=== PATIENT | female | born 2000 | race Caucasian/White ===

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

== ENCOUNTER 2022-01-29 18:46 | Emergency (ER) | payer BC ==
[~2022-01-29] VITALS: Ht 162.5 cm; Wt 49.8 kg
--- NOTE | 2022-01-29 19:14 | ED Abdominal Pain ---
General Chief Complaint: Abdominal/GI Problems Stated Complaint: LOWER RIGHT SIDE PAIN Source of Information: Patient Exam Limitations: No Limitations History of Present Illness Date Seen by Provider: Jan 29, 2022 Time Seen by Provider: 18:40 Initial Comments Patient ER by private conveyance with her mother with chief complaint that about 15 hours prior to arrival at 3 in the morning she was awoken with pain going across to her lower abdomen mostly to her right side. She has some pain in her back. She is not having vomiting fever chills malaise or body aches but she does have some nausea. No history of abdominal surgeries or trauma. No dysuria discharge. She is not on any medications routinely except for multivitamins. She has not taken anything for the pain today. She is about 18 days out from her last menstrual period. She says that her cycles are regular. Had a normal bowel movement earlier this morning. Rates it as 7 out of 10 while she is up moving around but only a 2 or 3 out of 10 while she is resting comfortably. Allergies and Home Medications Allergies Coded Allergies: amoxicillin (Verified Allergy, Unknown, hives, 01/29/22) clavulanic acid (Verified Allergy, Unknown, hives, 01/29/22) Patient Home Medication List Home Medication List Reviewed: Yes Review of Systems Review of Systems Constitutional: No chills, No diaphoresis EENTM: No Blurred Vision, No Double Vision Respiratory: Denies Cough, Denies Shortness of Air Cardiovascular: Denies Chest Pain, Denies Lightheadedness Gastrointestinal: Denies Constipated, Denies Diarrhea Genitourinary: Denies Burning, Denies Discharge Musculoskeletal: No back pain, No joint pain All Other Systems Reviewed Negative Unless Noted: Yes Past Knaaope-Rvrrsr-Mudlps Hx Patient Social History Tobacco Use?: No Use of E-Cig and/or Vaping dev: No Substance use?: No Alcohol Use?: No Pt feels they are or have been: No Immunizations Up To Date Influenza Vaccine Up-to-Date: No; Not Current First/Initial COVID19 Vaccinat: DENIES Past Medical History Surgeries: Yes (wisdom) Respiratory: No Cardiac: No Neurological: No Genitourinary: No Gastrointestinal: No Musculoskeletal: No Endocrine: No HEENT: No Cancer: No Psychosocial: No Integumentary: No Blood Disorders: No Physical Exam Vital Signs Vital Signs - First Documented 01/29/22 18:55 Temp 36.4 Pulse 100 Resp 16 B/P (MAP) 127/79 (95) Pulse Ox 99 O2 Delivery Room Air Capillary Refill : Height/Weight/BMI Height: '" Weight: lbs. oz. kg; BMI Method: General Appearance: WD/WN, mild distress HEENT: PERRL/EOMI, normal ENT inspection, TMs normal, pharynx normal Neck: full range of motion, supple, normal inspection Respiratory: lungs clear, normal breath sounds, no respiratory distress, no accessory muscle use Cardiovascular: normal peripheral pulses, regular rate, rhythm Gastrointestinal: normal bowel sounds, soft, no organomegaly; No rebound; tenderness (Right lower quadrant and around the umbilicus), other (Negative for psoas sign, Rovsing sign, mesenteric signs) Extremities: normal inspection, normal capillary refill Neurologic/Psychiatric: alert, normal mood/affect, oriented x 3 Skin: normal color, warm/dry Progress/Results/Core Measures Results/Orders Lab Results Laboratory Tests Test 01/29/22 19:03 01/29/22 19:08 Range/Units Urine Color YELLOW Urine Clarity CLEAR Urine pH 6.5 5-9 Urine Specific Adger <=1.005 1.016-1.022 Urine Protein NEGATIVE NEGATIVE Urine Glucose (UA) NEGATIVE NEGATIVE Urine Ketones NEGATIVE NEGATIVE Urine Nitrite NEGATIVE NEGATIVE Urine Bilirubin NEGATIVE NEGATIVE Urine Urobilinogen 0.2 < = 1.0 MG/DL Urine Leukocyte Esterase NEGATIVE NEGATIVE Urine RBC (Auto) NEGATIVE NEGATIVE Urine RBC NONE /HPF Urine WBC 0-2 /HPF Urine Squamous Epithelial Cells 0-2 /HPF Urine Renal Epithelial Cells NONE /HPF Urine Crystals NONE /LPF Urine Bacteria NEGATIVE /HPF Urine Casts NONE /LPF Urine Mucus NEGATIVE /LPF Urine Culture Indicated NO White Blood Count 9.6 4.3-11.0 10^3/uL Red Blood Count 4.84 3.80-5.11 10^6/uL Hemoglobin 12.4 11.5-16.0 g/dL Hematocrit 40 35-52 % Mean Corpuscular Volume 82 80-99 fL Mean Corpuscular Hemoglobin 26 25-34 pg Mean Corpuscular Hemoglobin Concent 31 L 32-36 g/dL Red Cell Distribution Width 14.6 H 10.0-14.5 % Platelet Count 341 130-400 10^3/uL Mean Platelet Volume 9.5 9.0-12.2 fL Immature Granulocyte % (Auto) 0 % Neutrophils (%) (Auto) 73 42-75 % Lymphocytes (%) (Auto) 18 12-44 % Monocytes (%) (Auto) 8 0-12 % Eosinophils (%) (Auto) 1 0-10 % Basophils (%) (Auto) 0 0-10 % Neutrophils # (Auto) 7.0 1.8-7.8 10^3/uL Lymphocytes # (Auto) 1.7 1.0-4.0 10^3/uL Monocytes # (Auto) 0.7 0.0-1.0 10^3/uL Eosinophils # (Auto) 0.1 0.0-0.3 10^3/uL Basophils # (Auto) 0.0 0.0-0.1 10^3/uL Immature Granulocyte # (Auto) 0.0 0.0-0.1 10^3/uL Sodium Level 140 135-145 MMOL/L Potassium Level 3.5 L 3.6-5.0 MMOL/L Chloride Level 105 98-107 MMOL/L Carbon Dioxide Level 24 21-32 MMOL/L Anion Gap 11 5-14 MMOL/L Blood Urea Nitrogen 17 7-18 MG/DL Creatinine 0.82 0.60-1.30 MG/DL Estimat Glomerular Filtration Rate 106 BUN/Creatinine Ratio 21 Glucose Level 120 H 70-105 MG/DL Calcium Level 9.7 8.5-10.1 MG/DL Corrected Calcium 9.3 8.5-10.1 MG/DL Total Bilirubin 0.8 0.1-1.0 MG/DL Aspartate Amino Transf (AST/SGOT) 22 5-34 U/L Alanine Aminotransferase (ALT/SGPT) 24 0-55 U/L Alkaline Phosphatase 81 40-136 U/L C-Reactive Protein High Sensitivity 0.43 0.00-0.50 MG/DL Total Protein 7.4 6.4-8.2 GM/DL Albumin 4.5 3.2-4.5 GM/DL My Orders Orders - ANDREW TERRELL Ua Culture If Indicated (01/29/22 19:27) Urine Bedside (01/29/22 19:27) Cbc With Automated Diff (01/29/22 19:27) Comprehensive Metabolic Panel (01/29/22 19:27) Hs C Reactive Protein (01/29/22 19:27) Ondansetron Injection (Zofran Injectio (01/29/22 20:00) Ondansetron Injection (Zofran Injectio (01/29/22 19:48) Ketorolac Injection (Toradol Injection) (01/29/22 20:30) Ketorolac Injection (Toradol Injection) (01/29/22 20:31) Medications Given in ED Current Medications Medications Dose Ordered Sig/Daisha Route Start Time Stop Time Status Last Admin Dose Admin Ketorolac Tromethamine 30 mg ONCE ONCE IVP 01/29/22 20:30 01/29/22 20:31 DC 01/29/22 20:32 30 MG Ondansetron HCl 4 mg ONCE ONCE IVP 01/29/22 20:00 01/29/22 20:01 DC 01/29/22 19:50 4 MG Vital Signs/I&O 01/29/22 18:55 Temp 36.4 Pulse 100 Resp 16 B/P (MAP) 127/79 (95) Pulse Ox 99 O2 Delivery Room Air Progress Progress Note : Time: 21:18 Progress Note Labs are normal. The patient's not having an acute abdominal exam or mesenteric signs. We did discuss risks, benefits and alternatives to imaging and recommended ultrasound which would be available tomorrow morning. The patient's pain is down to barely felt and not made worse by getting up out of bed or walking up and down the [place]. She has agreed to come back in the morning for an outpatient ultrasound and will have results forwarded to the ER physician. Differential includes ovarian cyst, mittelschmerz, less likely appendicitis or colitis. She is having normal bowel so an obstruction is unlikely. Departure Impression Primary Impression: Abdominal pain Qualified Codes: R10.31 - Right lower quadrant pain Disposition: 01 HOME, SELF-CARE Condition: Stable Departure-Patient Inst. Decision time for Depature: 21:20 Referrals: NO,LOCAL PHYSICIAN (PCP/Family) Primary Care Physician Patient Instructions: Appendicitis, Adult (DC), Painful Ovulation Add. Discharge Instructions: Drink plenty of fluids. Ibuprofen 4 tablets every 8 hours as needed for pain. Alternatively you may use Aleve 2 tablets every 12 hours needed for pain. Tylenol 1000 milligrams every 8 hours needed for pain. Ondansetron 1 tablet under the tongue every 6 hours as needed for nausea and/or vomiting. If you have intractable symptoms then you may return to the ER for management. Return to the outpatient center next to the ER tomorrow morning after 0730 to obtain an ultrasound of your right lower quadrant abdomen and pelvis. The ultr asound results will then be relayed to the ER doctor who will advise you what to do next before you leave. Alternatively you may call and make an appointment to do the ultrasound tomorrow if you do not want to do it first thing in the morning. All discharge instructions reviewed with patient and/or family. Voiced understanding. ANDREW TERRELL Jan 29, 2022 19:14
[2022-01-29 19:35] LABS: BASOPHILS % (AUTO) 0 % (0-10); EOSINOPHILS # (AUTO) 0.1 10^3/uL (0.0-0.3); EOSINOPHILS % (AUTO) 1 % (0-10); HEMATOCRIT 40 % (35-52); HEMOGLOBIN 12.4 g/dL (11.5-16.0); LYMPHOCYTES # (AUTO) 1.7 10^3/uL (1.0-4.0); LYMPHOCYTES % (AUTO) 18 % (12-44); MEAN CORPUSCULAR HEMOGLOBIN 26 pg (25-34); MEAN CORPUSCULAR HGB CONC 31 g/dL (32-36); MEAN CORPUSCULAR VOLUME 82 fL (80-99); MEAN PLATELET VOLUME 9.5 fL (9.0-12.2); MONOCYTES # (AUTO) 0.7 10^3/uL (0.0-1.0); MONOCYTES % (AUTO) 8 % (0-12); NEUTROPHILS % (AUTO) 73 % (42-75); PLATELET COUNT 341 10^3/uL (130-400); WHITE BLOOD COUNT 9.6 10^3/uL (4.3-11.0)
[2022-01-29 19:37] LABS: BILIRUBIN,URINE NEGATIVE (NEGATIVE); CLARITY,URINE CLEAR; COLOR,URINE YELLOW; GLUCOSE, URINE (UA) NEGATIVE (NEGATIVE); KETONES,URINE NEGATIVE (NEGATIVE); LEUKOCYTE ESTERASE ,URINE NEGATIVE (NEGATIVE); NITRITE,URINE NEGATIVE (NEGATIVE); PH,URINE 6.5 (5-9); PROTEIN,URINE NEGATIVE (NEGATIVE)
[2022-01-29 19:44] LABS: BACTERIA,URINE NEGATIVE /HPF; SQUAMOUS EPITHELIAL CELL,UR 0-2 /HPF; WBC,URINE 0-2 /HPF
[2022-01-29] MEDS ORDERED: ONDANSETRON 4 MG/2 ML (SDV) Z0FRAN ONE (19:48)
[2022-01-29] MEDS ORDERED: ONDANSETRON 4 MG/2 ML (SDV) Z0FRAN IVP ONE (20:00)
[2022-01-29 20:12] LABS: ALBUMIN 4.5 GM/DL (3.2-4.5); BILIRUBIN,TOTAL 0.8 MG/DL (0.1-1.0); CALCIUM 9.7 MG/DL (8.5-10.1); CREATININE SERUM 0.82 MG/DL (0.60-1.30); POTASSIUM 3.5 MMOL/L (3.6-5.0); TOTAL PROTEIN 7.4 GM/DL (6.4-8.2)
[2022-01-29] MEDS ORDERED: KETOROLAC 30 MG/ML VIAL IVP ONE (20:30)
[2022-01-29] MEDS ORDERED: KETOROLAC 30 MG/ML VIAL ONE (20:31)
[2022-01-29] MEDS ORDERED: RX-ONDANSETRON 4 MG ODT (ZOFRAN) PPK #4 PO STA (21:30)
[2022-01-29 21:45] VITALS: BP 123/72
== END 2022-01-29 21:40 | disposition home or self-care (01) ==
LOC: EDUNIT# 18:46 → ER 18:48
DX: R10.33 Periumbilical pain (principal); R10.31 Right lower quadrant pain; R11.0 Nausea; Z28.310 Unvaccinated for COVID-19
CPT/HCPCS: 36415; 80053; 81000; 84703; 85025; 86141

== ENCOUNTER → 2022-01-30 | Outpatient (CLI) | payer BC ==
--- NOTE | 2022-01-30 10:26 | Diagnostic Imaging Report ---
PROCEDURE: US PELVIC (NON OB) TECHNIQUE: Multiple real-time grayscale images were obtained over the pelvis in various projections transabdominally. INDICATION: Right lower quadrant pain. Pelvic pain. COMPARISON: None. FINDINGS: The uterus is anteverted and measures 7.2 x 3.4 x 4.3 cm. The endometrial stripe measures 0.8 cm and has a normal appearance. The right ovary is well visualized measuring 3.0 x 1.4 x 2.0 cm and demonstrating normal color Doppler flow. The left ovary is not visualized due to overlying bowel gas. No adnexal masses. No free fluid is seen in the pelvis. Additional dedicated images were performed of the right lower quadrant which showed no acute abnormalities. IMPRESSION: 1. No acute sonographic abnormalities in the pelvis. No evidence of adnexal mass or free fluid. 2. No acute sonographic abnormalities are seen in the right lower quadrant. If symptoms persist consider CT of the abdomen and pelvis to further evaluate. Dictated by: Dictated on workstation # [id number]
== END ==
LOC: RAD 08:15
PROVIDERS: ATTEND Emergency Medicine
DX: R10.31 Right lower quadrant pain (principal); R10.2 Pelvic and perineal pain
CPT/HCPCS: 76856